=== PATIENT | male | born 1970 | race American Indian/Alaskan Native ===

== ENCOUNTER 2016-10-14 10:04 | Day surgery (SDC) | payer OTHER ==
[2016-10-14 09:08] VITALS: BMI 39.7
[2016-10-14] MEDS ORDERED: PROPOFOL 20 ML ONE ×5 (10:44→11:57)
[2016-10-14 12:23] VITALS: TEMP 97.9
[2016-10-14 13:11] VITALS: BP 123/72; PULSE 78
== END 2016-10-14 13:11 | disposition home or self-care (01) ==
LOC: JASU-ENDO 10:04
PROVIDERS: ATTEND Internal Medicine Gastroenterology
PROC: 0DJD8ZZ Inspection of Lower Intestinal Tract, Via Natural or Artificial Opening Endoscopic (ICD-10-PCS; principal; 2016-10-14 11:00)
DX: K52.9 Noninfective gastroenteritis and colitis, unspecified (principal); K62.5 Hemorrhage of anus and rectum; K57.30 Diverticulosis of large intestine without perforation or abscess without bleeding